=== PATIENT | male | born 1955 | race Caucasian/White ===

== ENCOUNTER 2022-03-11 06:08 | Day surgery (SDC) | payer BC ==
[2022-03-11] MEDS ORDERED: Propofol 200 MG/20 ML SDV IV ONE (06:09)
[2022-03-11] MEDS ORDERED: Sodium Chloride 0.9% 10 ML Syringe FLUSH PRN (06:15)
[2022-03-11] MEDS ORDERED: Lactated Ringers 1,000 ML IV SCH (06:15)
[2022-03-11 06:50] VITALS: BP 149/85; PULSE 96
== END 2022-03-11 08:37 | disposition home or self-care (01) ==
LOC: FB.SDS 06:08
PROVIDERS: ATTEND Surgery
DX: Z12.11 Encounter for screening for malignant neoplasm of colon (principal); D12.2 Benign neoplasm of ascending colon; G47.30 Sleep apnea, unspecified; Z88.0 Allergy status to penicillin; Z98.890 Other specified postprocedural states
CPT/HCPCS: 00812; 45385; 88305; J2704; J7120